=== PATIENT | male | born 1980 | race Caucasian/White ===

== ENCOUNTER 2016-12-31 19:53 | Emergency (ER) | payer MEDICAID, OTHER ==
[~2016-12-31] VITALS: Ht 185.4 cm; Wt 90.0 kg
[2016-12-31] MEDS ORDERED: SODIUM CHLORIDE 0.9% FLUSH 10 ML FLUSH IVF PRN (21:15)
[2016-12-31] MEDS ORDERED: SODIUM CHLOR 0.9% 1000 ML INJ 1,000 ML IV ONE (21:15)
--- NOTE | 2016-12-31 21:44 | PD ---
HPI Chief Complaint: drug abuse/overdose Time Seen by Provider: 21:01 Travel History International Travel<30 days: No Contact w/Intl Traveler<30days: No History of Present Illness HPI Patient is a 36 year old male who presents to ER with police manager after drug overdose. Patient reports that he got into a fight with his parents whom he lives with, reports that his dad ultimately called police to the home. When police arrived on scene, patient reports that he panicked as he had drugs at the home and he didn't want to get into trouble for having them. Reports that he took all the acid and methamphetamines that he had. Reports that he thinks that he took 2 acid tabs and about 0.5-1gram of methamphetamines. Patient denies suicidal or homicidal ideations. Patient reports that he just didn't want to get into trouble for having the drugs. Patient did give his RN a different story and reported that he took acid and then ate marijuana brownies and took some "roofies" - denies methamphetamine abuse PFSH Past Medical History Depression: Yes Cancer: No Cerebrovascular Accident: No Diminished Hearing: No Hepatitis: Yes (HEPATITIS C ) Hypertension: Yes Musculoskeletal: No Respiratory: No Immunizations Current: No Migraines: Yes Seizures: No Past Surgical History Appendectomy: Yes Body Medical Devices: left arm screws Other Surgery: Yes Social History Alcohol Use: Yes Tobacco Use: Yes (OCC) Substance Use: Yes (MARIJUANA/DAILY ACID ) Allergies-Medications (Allergen,Severity, Reaction): Coded Allergies: No Known Allergies (Verified , 04/11/16) Reported Meds & Prescriptions Reported Meds & Active Scripts Active No Active Prescriptions or Reported Medications Review of Systems General / Constitutional: No: Fever Eyes: No: Visual changes HENT: No: Headaches Cardiovascular: No: Chest Pain or Discomfort Respiratory: No: Shortness of Breath Gastrointestinal: No: Abdominal Pain Genitourinary: No: Dysuria Musculoskeletal: No: Pain Skin: No Rash Neurologic: No: Weakness Psychiatric: Positive: Anxiety, Substance Abuse, No: Depression, Suicidal Ideations, Homicidal Ideation Endocrine: No: Polydipsia Hematologic/Lymphatic: No: Easy Bruising Physical Exam Narrative GENERAL: nad, nontoxic SKIN: Focused skin assessment warm/dry. HEAD: Atraumatic. Normocephalic. EYES: Pupils equal and round. No scleral icterus. No injection or drainage. ENT: No nasal bleeding or discharge. Mucous membranes pink and dry NECK: Trachea midline. No JVD. CARDIOVASCULAR: Regular rate and rhythm. No murmur appreciated. RESPIRATORY: No accessory muscle use. Clear to auscultation. Breath sounds equal bilaterally. GASTROINTESTINAL: Abdomen soft, non-tender, nondistended. Hepatic and splenic margins not palpable. MUSCULOSKELETAL: No obvious deformities. No clubbing. No cyanosis. No edema. NEUROLOGICAL: Awake and alert. No obvious cranial nerve deficits. Motor grossly within normal limits. Normal speech. PSYCHIATRIC: Aggitated mood Data Data Last Documented VS Vital Signs Date Time Temp Pulse Resp B/P Pulse Ox O2 Delivery O2 Flow Rate FiO2 12/31/16 21:51 18 100 Room Air 12/31/16 21:46 98.2 74 116/66 Orders Complete Blood Count With Diff (12/31/16 21:09) Comprehensive Metabolic Panel (12/31/16 21:09) Urinalysis - C+S If Indicated (12/31/16 21:) Oximetry (12/31/16 21:) Iv Access Insert/Monitor (12/31/16 21:09) Ecg Monitoring (12/31/16 21:09) Sodium Chloride 0.9% Flush (Ns Flush) (12/31/16 21:15) Drug Screen, Random Urine (12/31/16 21:09) Alcohol (Ethanol) (12/31/16 21:09) Salicylates (Aspirin) (12/31/16 21:09) Tylenol (Acetaminophen) (12/31/16 21:09) Sodium Chlor 0.9% 1000 Ml Inj (Ns 1000 M (12/31/16 21:15) Call Poison Control (12/31/16 21:15) Electrocardiogram (12/31/16 ) Electrocardiogram (12/31/16 ) Labs Laboratory Tests Test 12/31/16 21:45 White Blood Count 6.6 TH/MM3 Red Blood Count 4.74 MIL/MM3 Hemoglobin 13.9 GM/DL Hematocrit 40.9 % Mean Corpuscular Volume 86.3 FL Mean Corpuscular Hemoglobin 29.4 PG Mean Corpuscular Hemoglobin 34.1 % Concent Red Cell Distribution Width 14.0 % Platelet Count 294 TH/MM3 Mean Platelet Volume 8.0 FL Neutrophils (%) (Auto) 63.7 % Lymphocytes (%) (Auto) 20.7 % Monocytes (%) (Auto) 13.1 % Eosinophils (%) (Auto) 2.1 % Basophils (%) (Auto) 0.4 % Neutrophils # (Auto) 4.2 TH/MM3 Lymphocytes # (Auto) 1.4 TH/MM3 Monocytes # (Auto) 0.9 TH/MM3 Eosinophils # (Auto) 0.1 TH/MM3 Basophils # (Auto) 0.0 TH/MM3 CBC Comment DIFF FINAL Differential Comment Sodium Level 144 MEQ/L Potassium Level 3.6 MEQ/L Chloride Level 107 MEQ/L Carbon Dioxide Level 32.2 MEQ/L Anion Gap 5 MEQ/L Blood Urea Nitrogen 16 MG/DL Creatinine 0.93 MG/DL Estimat Glomerular Filtration 92 ML/MIN Rate Random Glucose 75 MG/DL Calcium Level 8.3 MG/DL Total Bilirubin 1.6 MG/DL Aspartate Amino Transf 40 U/L (AST/SGOT) Alanine Aminotransferase 68 U/L (ALT/SGPT) Alkaline Phosphatase 75 U/L Total Protein 6.6 GM/DL Albumin 3.5 GM/DL Salicylates Level LESS THAN 1.7 MG/DL Acetaminophen Level LESS THAN 2.0 MCG/ML Ethyl Alcohol Level LESS THAN 3 MG/DL MDM Medical Decision Making Medical Screen Exam Complete: Yes Emergency Medical Condition: Yes Interpretation(s) EKG at 2139: NSR at 74bpm, qt/qtc: 391/418, no acute st or t wave changes Vital Signs Date Time Temp Pulse Resp B/P Pulse Ox O2 Delivery O2 Flow Rate FiO2 12/31/16 21:51 18 100 Room Air 12/31/16 21:46 98.2 74 18 116/66 100 Differential Diagnosis drug overdose, methamphetamine overdose, electrolyte abnormality, polysubstance abuse Narrative Course Patient is a 36 year old male who presents to ER with a police manager for evaluation of possible drug overdose. Patient reports that he took a bunch of methamphetamines as well as 2 Acid pills when he saw anesthesia associate at his home today. Reports that the only reason why he took all of his drugs was that he didn't want to get in trouble for having the drugs. Plan to obtain tox labs and monitor patient on remote pilot operator. Patient did give his RN a different story and reported that he took acid and then ate marijuana brownies and took some "roofies" - denies methamphetamine abuse - At this time, pt's vss, patient is not tachycardic, hyperthermic or hypertensive. He does not appear to be agitated at this time. If patient truly did take methamphetamines, his peak plasma concentration should be achieved approximately 30 minutes to up to 2-3 hours after ingestion. Plan to monitor patient on remote pilot operator. Poison control was called - monitor patient and repeat ekg. benzo for agitation - no other recommendations Vital Signs Date Time Temp Pulse Resp B/P Pulse Ox O2 Delivery O2 Flow Rate FiO2 12/31/16 21:51 18 100 Room Air 12/31/16 21:46 98.2 74 18 116/66 100 Laboratory Tests Test 12/31/16 21:45 White Blood Count 6.6 TH/MM3 (4.0-11.0) Red Blood Count 4.74 MIL/MM3 (4.50-5.90) Hemoglobin 13.9 GM/DL (13.0-17.0) Hematocrit 40.9 % (39.0-51.0) Mean Corpuscular Volume 86.3 FL (80.0-100.0) Mean Corpuscular Hemoglobin 29.4 PG (27.0-34.0) Mean Corpuscular Hemoglobin 34.1 % Concent (32.0-36.0) Red Cell Distribution Width 14.0 % (11.6-17.2) Platelet Count 294 TH/MM3 (150-450) Mean Platelet Volume 8.0 FL (7.0-11.0) Neutrophils (%) (Auto) 63.7 % (16.0-70.0) Lymphocytes (%) (Auto) 20.7 % (9.0-44.0) Monocytes (%) (Auto) 13.1 % (0.0-8.0) Eosinophils (%) (Auto) 2.1 % (0.0-4.0) Basophils (%) (Auto) 0.4 % (0.0-2.0) Neutrophils # (Auto) 4.2 TH/MM3 (1.8-7.7) Lymphocytes # (Auto) 1.4 TH/MM3 (1.0-4.8) Monocytes # (Auto) 0.9 TH/MM3 (0-0.9) Eosinophils # (Auto) 0.1 TH/MM3 (0-0.4) Basophils # (Auto) 0.0 TH/MM3 (0-0.2) CBC Comment DIFF FINAL Differential Comment Sodium Level 144 MEQ/L (136-145) Potassium Level 3.6 MEQ/L (3.5-5.1) Chloride Level 107 MEQ/L (98-107) Carbon Dioxide Level 32.2 MEQ/L (21.0-32.0) Anion Gap 5 MEQ/L (5-15) Blood Urea Nitrogen 16 MG/DL (7-18) Creatinine 0.93 MG/DL (0.60-1.30) Estimat Glomerular Filtration 92 ML/MIN (>89) Rate Random Glucose 75 MG/DL (74-106) Calcium Level 8.3 MG/DL (8.5-10.1) Total Bilirubin 1.6 MG/DL (0.2-1.0) Aspartate Amino Transf 40 U/L (15-37) (AST/SGOT) Alanine Aminotransferase 68 U/L (12-78) (ALT/SGPT) Alkaline Phosphatase 75 U/L (45-117) Total Protein 6.6 GM/DL (6.4-8.2) Albumin 3.5 GM/DL (3.4-5.0) Salicylates Level LESS THAN 1.7 MG/DL (2.8-20.0) Acetaminophen Level LESS THAN 2.0 MCG/ML (10.0-30.0) Ethyl Alcohol Level LESS THAN 3 MG/DL (0-5) Patient has been in the ER for over 4 hours, patients vital signs have been normal with no hypertension or tachycardia. Patient sleeping on stretcher and is not agitated, appears restful and in no acute distress. Plan to discharge patient to custody of police officers. Patient encouraged not to use drugs. Repeat ekg: NSR with no acute st or t wave changes, patient safe to be discharged with police officers Diagnosis Primary Impression: Polysubstance abuse Patient Instructions: General Instructions Additional Instructions: Stop abusing drugs Please follow up with your primary care doctor in 2-3 days Return to ER as needed Scripts No Active Prescriptions or Reported Meds Disposition: [address] LAW ENFORCEMNT Condition: Stable Jocelin Galan DO December 31, 2016 21:44
[2016-12-31 21:46] VITALS: BP 116/66; PULSE 74; RESP 18; TEMP 98.2; O2SAT 100
[2016-12-31 21:51] VITALS: RESP 18; O2SAT 100
[2016-12-31 22:05] LABS: AUTOMATED NEUTROPHIL # 4.2 TH/MM3 (1.8-7.7); BASOPHIL % 0.4 % (0.0-2.0); EOSINOPHIL # 0.1 TH/MM3 (0-0.4); EOSINOPHIL % 2.1 % (0.0-4.0); HEMATOCRIT 40.9 % (39.0-51.0); HEMO FLAGS DIFF FINAL; LYMPH % 20.7 % (9.0-44.0); LYMPHOCYTE # 1.4 TH/MM3 (1.0-4.8); MEAN CELL VOLUME 86.3 FL (80.0-100.0); MEAN CORPUSCULAR HEMOGLOBIN 29.4 PG (27.0-34.0); MEAN CORPUSCULAR HGB CONC 34.1 % (32.0-36.0); MONO % 13.1 % (0.0-8.0); NEUT % 63.7 % (16.0-70.0); PLATELET COUNT 294 TH/MM3 (150-450); RED BLOOD COUNT 4.74 MIL/MM3 (4.50-5.90); WHITE BLOOD COUNT 6.6 TH/MM3 (4.0-11.0)
[2016-12-31 22:24] LABS: ALT (GPT) 68 U/L (12-78); ANION GAP 5 MEQ/L (5-15); AST (GOT) 40 U/L (15-37); BICARBONATE 32.2 MEQ/L (21.0-32.0); BLOOD UREA NITROGEN 16 MG/DL (7-18); CHLORIDE 107 MEQ/L (98-107); GLOMERULAR FILTRATION RATE 92 ML/MIN (>89); POTASSIUM 3.6 MEQ/L (3.5-5.1); SODIUM (NA) 144 MEQ/L (136-145)
[2016-12-31 22:27] LABS: ACETAMINOPHEN LESS THAN 2.0 MCG/ML (10.0-30.0); ALKALINE PHOSPHATASE 75 U/L (45-117); TOTAL BILIRUBIN ADULT 1.6 MG/DL (0.2-1.0)
--- NOTE | 2017-01-01 07:37 | EKG ---
Date Performed: 12/31/2016 Time Performed: 23:56:09 PTAGE: 36 years EKG: Sinus rhythm NORMAL ECG NO SIGNIFICANT CHANGE FROM PRIOR ELECTROCARDIOGRAM. PREVIOUS TRACING : 04/11/2016 17.29 DOCTOR: Hector Adrian Interpretating Date/Time 01/01/2017 07:36:24
--- NOTE | 2017-01-01 07:38 | EKG ---
Date Performed: 12/31/2016 Time Performed: 21:39:32 PTAGE: 36 years EKG: Sinus rhythm NORMAL ECG NO PREVIOUS TRACING DOCTOR: Hector Adrian Interpretating Date/Time 01/01/2017 07:37:24
== END 2017-01-01 01:07 | disposition home or self-care (01) ==
LOC: NEDAMB 19:53 → NEPD 01-01 01:07
DX: F19.10 Other psychoactive substance abuse, uncomplicated (principal); T40.7X4A Poisoning by cannabis (derivatives), undetermined, initial encounter; F12.20 Cannabis dependence, uncomplicated
CPT/HCPCS: 80053; 80307; 85025; 93005; 99284; J7030